=== PATIENT | female | born 1965 | race Two or more races ===

== ENCOUNTER 2025-09-09 12:34 | Emergency (ER) | payer BC ==
[~2025-09-09] VITALS: Ht 162.6 cm; Wt 65.3 kg
[2025-09-09 14:34] VITALS: BP 135/79; O2SAT 99
[2025-09-09] MEDS ORDERED: CEFTRIAXONE SODIUM 1,000 MG VIAL IM ONE (15:00)
[2025-09-09] MEDS ORDERED: METHYLPREDNISOLONE SOD SUCC 125 MG VIAL IM ONE (15:00)
[2025-09-09] MEDS ORDERED: DIPHENHYDRAMINE HCL 50 MG/ML VIAL 1ML IM ONE (15:00)
[2025-09-09] MEDS ORDERED: DIPHENHYDRAMINE HCL 50 MG/ML VIAL 1ML ONE (15:40)
[2025-09-09] MEDS ORDERED: CEFTRIAXONE SODIUM 1,000 MG VIAL ONE (15:41)
[2025-09-09] MEDS ORDERED: METHYLPREDNISOLONE SOD SUCC 125 MG VIAL ONE (15:41)
== END 2025-09-09 20:04 | disposition home or self-care (01) ==
LOC: ER 12:34
DX: T78.49XA Other allergy, initial encounter (principal); X58.XXXA Exposure to other specified factors, initial encounter; B86 Scabies